=== PATIENT | female | born 2000 | race Caucasian/White ===

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

== ENCOUNTER 2019-04-28 12:28 | Emergency (ER) | payer MEDICAID ==
[2019-04-28 12:45] VITALS: O2SAT 98
--- NOTE | 2019-04-28 13:21 | ERPHSYRPT ---
- History of Present Illness Time Seen by Provider: 04/28/19 13:00 Source: patient Exam Limitations: no limitations Patient Subjective Stated Complaint: pt here for white stools x4 , she has a hx of constipation in the past but had a bm today, no abd pain, no nausea or vomiting, no fever Triage Nursing Assessment: pt alert, walked in , resp easy, skin w/d/p, abd soft , no edema . moves all ext well Physician History: Pt states, she has long been suffering of alternating constipation and diarrhea. She noticed , her bowel movements became "white" since yesterday and it made her concerned. She states,. her last bowel movement was 1.5 hours ago, and it was hard and "white". She denies any pain, no abdominal, flank or rectal pain, no bloody or black stools, no nausea, vomiting, no fever, chills or urinary complaints, also denies vaginal bleeding or discharge. Timing/Duration: yesterday Severity: mild Modifying Factors: Improves With: nothing Associated Symptoms: denies symptoms Allergies/Adverse Reactions: No Known Drug Allergies Allergy (Verified 04/28/19 12:45) Home Medications: No Home Meds [No Home Meds] 1 ea UD 11/08/16 [History] Hx Tetanus, Diphtheria Vaccination/Date Given: Yes Hx Influenza Vaccination/Date Given: No Hx Pneumococcal Vaccination/Date Given: No Immunizations Up to Date: Yes - Review of Systems Constitutional: No Symptoms Ears, Nose, & Throat: No Symptoms Respiratory: No Symptoms Cardiac: No Symptoms Abdominal/Gastrointestinal: Other (white stools, constipation) Genitourinary Symptoms: No Symptoms Musculoskeletal: No Symptoms Skin: No Symptoms Neurological: No Symptoms All Other Systems: Reviewed and Negative - Past Medical History Pertinent Past Medical History: No Neurological History: No Pertinent History ENT History: No Pertinent History Cardiac History: Other Respiratory History: No Pertinent History Endocrine Medical History: No Pertinent History Musculoskeletal History: No Pertinent History GI Medical History: No Pertinent History History: No Pertinent History Psycho-Social History: Anxiety Female Reproductive Disorders: Abnormal Uterine Bleeding Other Medical History: states on a heart monitor recently for tachycardia,to follow up with cardiol. - Past Surgical History Past Surgical History: Yes Neuro Surgical History: No Pertinent History Cardiac: No Pertinent History Respiratory: No Pertinent History Gastrointestinal: No Pertinent History Genitourinary: No Pertinent History Musculoskeletal: No Pertinent History Female Surgical History: Section Other Surgical History: Sep 28 2015 - Social History Smoking Status: Current every day smoker How long have you smoked: 2 Exposure to second hand smoke: Yes Alcohol Use: None Drug Use: none Patient Lives Alone: No Significant Family History: no pertinent family hx - Female History Hx Last Menstrual Period: march Hx Now: No (no protection) - Nursing Vital Signs Nursing Vital Signs: Initial Vital Signs Temperature 98.0 F 04/28/19 12:39 Pulse Rate 113 H 04/28/19 12:39 Respiratory Rate 16 04/28/19 12:39 Blood Pressure 123/69 04/28/19 12:39 O2 Sat by Pulse Oximetry 98 04/28/19 12:39 Pain Scale Pain Intensity 0 - Physical Exam General Appearance: no apparent distress Eye Exam: eyes nml inspection Ears, Nose, Throat Exam: normal ENT inspection, moist mucous membranes Neck Exam: normal inspection, non-tender Respiratory Exam: normal breath sounds, lungs clear Cardiovascular Exam: regular rate/rhythm, normal heart sounds, normal peripheral pulses Gastrointestinal/Abdomen Exam: soft, normal bowel sounds, No tenderness, No distention, No mass, No guarding, No ecchymosis, No rebound, No hepatomegaly, No organomegaly Back Exam: normal inspection, No CVA tenderness Extremity Exam: normal inspection, No pedal edema Neurologic Exam: alert, oriented x 3, cooperative, normal mood/affect Skin Exam: normal color, warm, dry, No rash, No petechiae, No cyanosis, No diaphoresis Lymphatic Exam: No adenopathy SpO2 Interpretation: normal SpO2: 98 O2 Delivery: Room Air - Course Nursing assessment & vital signs reviewed: Yes Ordered Tests: Active Orders 24 hr Category Date Time Status AMYLASE Stat Lab 04/28/19 13:20 Completed CBC W DIFF Stat Lab 04/28/19 13:20 Completed CMP Stat Lab 04/28/19 13:20 Completed CULTURE,URINE Stat Lab 04/28/19 13:20 Received HCG,QUALITATIVE URINE Stat Lab 04/28/19 13:20 Completed LIPASE Stat Lab 04/28/19 13:20 Completed PROTIME WITH INR Stat Lab 04/28/19 13:20 Completed UA W/RFX UR CULTURE Stat Lab 04/28/19 13:20 Completed Urine Triage Profile Stat Lab 04/28/19 13:20 Completed Lab/Rad Data: Laboratory Result Diagrams 04/28/19 13:20 04/28/19 13:20 Laboratory Results 04/28/19 04/28/19 04/28/19 Range/Units 13:20 13:20 13:20 WBC (4.0-10.5) K/mm3 RBC (4.1-5.4) M/mm3 Hgb (12.0-16.0) gm/dl Hct (35-47) % MCV (78-100) fl MCH (26-32) pg MCHC (32-36) g/dl RDW (11.5-14.0) % Plt Count (150-450) K/mm3 MPV (6-9.5) fl Gran % (36.0-66.0) % Eos # (Auto) (0-0.5) Absolute Lymphs (auto) (1.0-4.6) Absolute Monos (auto) (0.0-1.3) Lymphocytes % (24.0-44.0) % Monocytes % (0.0-12.0) % Eosinophils % (0.00-5.0) % Basophils % (0.0-0.4) % Absolute Granulocytes (1.4-6.9) Basophils # (0-0.4) PT (9.95-12.35) SECONDS INR (0.8-3.0) Sodium (137-145) mmol/L Potassium (3.5-5.1) mmol/L Chloride (98-107) mmol/L Carbon Dioxide (22-30) mmol/L Anion Gap (5-15) MEQ/L BUN (7-17) mg/dL Creatinine (0.52-1.04) mg/dL Estimated GFR ML/MIN Glucose (74-106) mg/dL Calcium (8.4-10.2) mg/dL Total Bilirubin (0.2-1.3) mg/dL AST (14-36) U/L ALT (0-35) U/L Alkaline Phosphatase (38-126) U/L Serum Total Protein (6.3-8.2) g/dL Albumin (3.5-5.0) g/dL Amylase (30-110) U/L Lipase (23-300) U/L Urine Color YELLOW (YELLOW) Urine Appearance CLOUDY (CLEAR) Urine pH 7.0 (5-6) Ur Specific Upson 1.023 (1.005-1.025) Urine Protein NEGATIVE (Negative) Urine Ketones NEGATIVE (NEGATIVE) Urine Blood NEGATIVE (0-5) Ramana/ul Urine Nitrite NEGATIVE (NEGATIVE) Urine Bilirubin NEGATIVE (NEGATIVE) Urine Urobilinogen NEGATIVE (0-1) mg/dL Ur Leukocyte Esterase LARGE (NEGATIVE) Urine WBC (Auto) 6-10 (0-5) /HPF Urine RBC (Auto) 3-5 (0-2) /HPF U Epithel Cells (Auto) FEW (FEW) /HPF Urine Bacteria (Auto) MODERATE (NEGATIVE) /HPF Urine Mucus (Auto) SLIGHT (NEGATIVE) /HPF Urine Culture Reflexed YES (NO) Urine Glucose NEGATIVE (NEGATIVE) mg/dL Urine HCG, Qual NEGATIVE (Negative) Urine Opiates Level NEGATIVE (NEGATIVE) Ur Methadone NEGATIVE (NEGATIVE) Urine Barbiturates NEGATIVE (NEGATIVE) Ur Phencyclidine (PCP) NEGATIVE (NEGATIVE) Urine Amphetamine NEGATIVE (NEGATIVE) U Benzodiazepine Level NEGATIVE (NEGATIVE) Urine Cocaine NEGATIVE (NEGATIVE) Urine Marijuana (THC) NEGATIVE (NEGATIVE) 04/28/19 04/28/19 04/28/19 Range/Units 13:20 13:20 13:20 WBC 12.3 H (4.0-10.5) K/mm3 RBC 4.58 (4.1-5.4) M/mm3 Hgb 14.0 (12.0-16.0) gm/dl Hct 41.9 (35-47) % MCV 91.5 (78-100) fl MCH 30.6 (26-32) pg MCHC 33.4 (32-36) g/dl RDW 13.7 (11.5-14.0) % Plt Count 311 (150-450) K/mm3 MPV 10.0 H (6-9.5) fl Gran % 66.7 H (36.0-66.0) % Eos # (Auto) 0.25 (0-0.5) Absolute Lymphs (auto) 3.03 (1.0-4.6) Absolute Monos (auto) 0.79 (0.0-1.3) Lymphocytes % 24.7 (24.0-44.0) % Monocytes % 6.4 (0.0-12.0) % Eosinophils % 2.0 (0.00-5.0) % Basophils % 0.2 (0.0-0.4) % Absolute Granulocytes 8.18 H (1.4-6.9) Basophils # 0.02 (0-0.4) PT 12.4 H (9.95-12.35) SECONDS INR 1.10 (0.8-3.0) Sodium 141 (137-145) mmol/L Potassium 3.5 (3.5-5.1) mmol/L Chloride 108 H (98-107) mmol/L Carbon Dioxide 25 (22-30) mmol/L Anion Gap 11.4 (5-15) MEQ/L BUN 12 (7-17) mg/dL Creatinine 0.59 (0.52-1.04) mg/dL Estimated GFR > 60.0 ML/MIN Glucose 115 H (74-106) mg/dL Calcium 9.5 (8.4-10.2) mg/dL Total Bilirubin 0.40 (0.2-1.3) mg/dL AST 29 (14-36) U/L ALT 25 (0-35) U/L Alkaline Phosphatase 69 (38-126) U/L Serum Total Protein 7.9 (6.3-8.2) g/dL Albumin 4.4 (3.5-5.0) g/dL Amylase 68 (30-110) U/L Lipase 134 (23-300) U/L Urine Color (YELLOW) Urine Appearance (CLEAR) Urine pH (5-6) Ur Specific Upson (1.005-1.025) Urine Protein (Negative) Urine Ketones (NEGATIVE) Urine Blood (0-5) Ramana/ul Urine Nitrite (NEGATIVE) Urine Bilirubin (NEGATIVE) Urine Urobilinogen (0-1) mg/dL Ur Leukocyte Esterase (NEGATIVE) Urine WBC (Auto) (0-5) /HPF Urine RBC (Auto) (0-2) /HPF U Epithel Cells (Auto) (FEW) /HPF Urine Bacteria (Auto) (NEGATIVE) /HPF Urine Mucus (Auto) (NEGATIVE) /HPF Urine Culture Reflexed (NO) Urine Glucose (NEGATIVE) mg/dL Urine HCG, Qual (Negative) Urine Opiates Level (NEGATIVE) Ur Methadone (NEGATIVE) Urine Barbiturates (NEGATIVE) Ur Phencyclidine (PCP) (NEGATIVE) Urine Amphetamine (NEGATIVE) U Benzodiazepine Level (NEGATIVE) Urine Cocaine (NEGATIVE) Urine Marijuana (THC) (NEGATIVE) - Progress Progress: unchanged Progress Note: 04/28/19 14:00 We reviewed her labs, and discussed with her, she was reassured about the stool color changes, and will be started on Bactrim DS BID x 7 days for UTI, advised to rest x 2-3 days, drink plenty of fluids, and follow up with her physician in 1 week. Counseled pt/family regarding: lab results, diagnosis, need for follow-up - Departure Departure Disposition: Home Clinical Impression: Urinary tract infection Qualifiers: Urinary tract infection type: site unspecified Hematuria presence: without hematuria Qualified Code(s): N39.0 - Urinary tract infection, site not specified Constipation Qualifiers: Constipation type: unspecified constipation type Qualified Code(s): K59.00 - Constipation, unspecified Condition: Stable Critical Care Time: No Referrals: DONNIE GARCIA [Primary Care Provider] - Instructions: Constipation, Adult (DC), Urinary Tract Infection, Adult (DC) Additional Instructions: Rest x 2-3 days, drink plenty of fluids, and follow up with your physician next week, return if severe pain, vomiting, bleeding, fever> 102 F! Prescriptions: Polyethylene Glycol 3350 17 gm [Miralax Powder 17GM PACKET] 17 gm PO DAILY 10 Days #10 packet Sulfamethoxazole/Trimethoprim [Bactrim Ds Tablet] 1 each PO BID 7 Days #14 tablet
[2019-04-28 13:25] LABS: BASOPHIL % 0.2 % (0.0-0.4); Basophil (Absolute #) 0.02 (0-0.4); Eosinophil (Absolute #) 0.25 (0-0.5); Granulocyte Absolute (ANC) 8.18 (1.4-6.9); Granulocytes % 66.7 % (36.0-66.0); Hematocrit 41.9 % (35-47); Lymphocyte (Absolute #) 3.03 (1.0-4.6); Lymphocytes % 24.7 % (24.0-44.0); Mean Cell Volume 91.5 fl (78-100); Mean Corpuscular Hemoglobin 30.6 pg (26-32); Mean Corpuscular Hgb Concent. 33.4 g/dl (32-36); Monocyte (Absolute #) 0.79 (0.0-1.3); Monocytes % 6.4 % (0.0-12.0); Platelet Count 311 K/mm3 (150-450); Red Blood Count 4.58 M/mm3 (4.1-5.4); Red Cell Distribution Width 13.7 % (11.5-14.0); White Blood Count 12.3 K/mm3 (4.0-10.5)
[2019-04-28 13:31] LABS: Appearance CLOUDY (CLEAR); Bacteria MODERATE /HPF (NEGATIVE); Bilirubin NEGATIVE (NEGATIVE); Blood NEGATIVE Ery/ul (0-5); Epithelial Cells FEW /HPF (FEW); Glucose NEGATIVE (NEGATIVE); Ketones NEGATIVE (NEGATIVE); Leukocyte Esterase LARGE (NEGATIVE); Mucus SLIGHT /HPF (NEGATIVE); Nitrite NEGATIVE (NEGATIVE); Protein,Urine Dip NEGATIVE (Negative); Specific Gravity 1.023 (1.005-1.025); Urobilinogen NEGATIVE mg/dL (0-1)
[2019-04-28 13:38] LABS: INR 1.1 (0.8-3.0); PROTIME 12.4 SECONDS (9.95-12.35)
[2019-04-28 13:42] LABS: ALBUMIN 4.4 g/dL (3.5-5.0); ALKALINE PHOSPHATASE 69 U/L (38-126); AMYLASE 68 U/L (30-110); ANION GAP 11.4 MEQ/L (5-15); BLOOD UREA NITROGEN 12 mg/dL (7-17); CHLORIDE 108 mmol/L (98-107); Calcium 9.5 mg/dL (8.4-10.2); Carbon Dioxide 25 mmol/L (22-30); Creatinine 1 0.59 mg/dL (0.52-1.04); Glucose 115 mg/dL (74-106); LIPASE 134 U/L (23-300); Potassium 3.5 mmol/L (3.5-5.1); SGOT/AST 29 U/L (14-36); SGPT/ALT 25 U/L (0-35); SODIUM 141 mmol/L (137-145); Total Protein 7.9 g/dL (6.3-8.2)
[2019-04-28 13:45] LABS: Amphetamine,Urine NEGATIVE (NEGATIVE); Barbiturate,Urine NEGATIVE (NEGATIVE); Benzodiazepine,Urine NEGATIVE (NEGATIVE); Cocaine,Urine NEGATIVE (NEGATIVE); Methadone,Urine NEGATIVE (NEGATIVE); Opiate,Urine NEGATIVE (NEGATIVE); PCP,Urine NEGATIVE (NEGATIVE); THC,Urine NEGATIVE (NEGATIVE)
[2019-04-28 14:06] VITALS: BP 110/70; PULSE 80
== END 2019-04-28 14:16 | disposition home or self-care (01) ==
LOC: ED 12:28
DX: N39.0 Urinary tract infection, site not specified (principal); K59.00 Constipation, unspecified
CPT/HCPCS: 36415; 80053; 80307; 81001; 82150; 83690; 84703; 85025; 85610; 87086; 99283

== ENCOUNTER 2019-10-22 01:28 | Emergency (ER) | payer SELFPAY ==
[2019-10-22 01:35] VITALS: BP 133/96; PULSE 97; O2SAT 98
[2019-10-22] MEDS ORDERED: AMOXIL 500 MG PO ONE (01:52)
[2019-10-22] MEDS ORDERED: PERCOCET TABLET 5/325MG PO STA (01:52)
--- NOTE | 2019-10-22 01:52 | ERPHSYRPT ---
- History of Present Illness Time Seen by Provider: 10/22/19 01:45 Source: patient, family Exam Limitations: no limitations Patient Subjective Stated Complaint: pt c/o lt lower tooth and gum pain Triage Nursing Assessment: pt c/o tooth and gum pain to lt lower jaw x3 days this time. Pt states, "it's been going on, off and on, x1 month". Pt c/o lt ear burning. Physician History: 19 y/o white female presents with 3 month h/o dental pain. acute exacerbation pain last couple of days left lower molar from fx tooth Timing/Duration: gradual onset Severity: moderate ENT Location: dental Prearrival Treatment: over the counter meds Associated Symptoms: tooth pain Allergies/Adverse Reactions: No Known Drug Allergies Allergy (Verified 04/28/19 12:45) Hx Tetanus, Diphtheria Vaccination/Date Given: Yes Hx Influenza Vaccination/Date Given: No Hx Pneumococcal Vaccination/Date Given: No Immunizations Up to Date: Yes - Review of Systems Constitutional: No Symptoms Eyes: No Symptoms Ears, Nose, & Throat: Other (dental pain) Respiratory: No Symptoms Cardiac: No Symptoms Abdominal/Gastrointestinal: No Symptoms Genitourinary Symptoms: No Symptoms Musculoskeletal: No Symptoms Skin: No Symptoms Neurological: No Symptoms Psychological: No Symptoms Endocrine: No Symptoms Hematologic/Lymphatic: No Symptoms Immunological/Allergic: No Symptoms All Other Systems: Reviewed and Negative - Past Medical History Pertinent Past Medical History: No Neurological History: No Pertinent History ENT History: No Pertinent History Cardiac History: Other Respiratory History: No Pertinent History Endocrine Medical History: No Pertinent History Musculoskeletal History: No Pertinent History GI Medical History: No Pertinent History History: No Pertinent History Psycho-Social History: Anxiety, Depression Female Reproductive Disorders: Abnormal Uterine Bleeding Other Medical History: manic. 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 - Past Surgical History Past Surgical History: Yes Neuro Surgical History: No Pertinent History Cardiac: No Pertinent History Respiratory: No Pertinent History Gastrointestinal: No Pertinent History Genitourinary: No Pertinent History Musculoskeletal: No Pertinent History Female Surgical History: Section Other Surgical History: Sep 28 2015 - Social History Smoking Status: Current every day smoker How long have you smoked: 6 yrs Exposure to second hand smoke: Yes Alcohol Use: None Drug Use: none Patient Lives Alone: No Significant Family History: no pertinent family hx - Female History Hx Last Menstrual Period: 09/23/19 Hx Now: No - Nursing Vital Signs Nursing Vital Signs: Initial Vital Signs Temperature 97.8 F 10/22/19 01:34 Pulse Rate 97 H 10/22/19 01:34 Respiratory Rate 18 10/22/19 01:34 Blood Pressure 133/96 10/22/19 01:34 O2 Sat by Pulse Oximetry 98 10/22/19 01:34 Pain Scale Pain Intensity 9 - Physical Exam General Appearance: no apparent distress, alert, anxiety Eye Exam: bilateral eye: normal inspection, PERRL, EOMI Ear Exam: bilateral ear: auricle normal, canal normal, TM normal Nasal Exam: normal inspection Throat Exam: dental tenderness Neck Exam: normal inspection, non-tender, supple, full range of motion Cardiovascular/Respiratory Exam: chest non-tender, no respiratory distress Abdominal Exam: non-tender Neurologic Exam: alert, oriented x 3, cooperative, 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, normal mood/affect, nml cerebellar function, nml station & gait Skin Exam: normal color, warm, dry SpO2 Interpretation: normal SpO2: 98 O2 Delivery: Room Air - Course Nursing assessment & vital signs reviewed: Yes Ordered Tests: Medication Summary Generic Name Dose Route Start Last Admin Trade Name Freq PRN Reason Stop Dose Admin Amoxicillin 500 mg 10/22/19 01:52 Amoxil 500 Mg PO 10/22/19 01:53 STAT ONE Oxycodone/Acetaminophen 1 tab 10/22/19 01:52 Percocet Tablet 5/325mg PO 10/22/19 01:53 STAT STA - Progress Progress: unchanged Counseled pt/family regarding: diagnosis, need for follow-up - Departure Departure Disposition: Home Clinical Impression: Pain, dental Condition: Stable Critical Care Time: No Referrals: DONNIE GARCIA [Primary Care Provider] - Additional Instructions: use tylenol and ibuprofen for pain. follow up with dentist for definitive care Prescriptions: Amoxicillin 500 mg Cap [Amoxil 500 mg] 500 mg PO TID #30 capsule
[2019-10-22] MEDS ORDERED: PERCOCET TABLET 5/325MG ONE (01:57)
[2019-10-22] MEDS ORDERED: Augmentin 500-125 Tablet ONE (01:57)
[2019-10-22] MEDS ORDERED: AMOXIL 500 MG ONE (02:00)
== END 2019-10-22 02:05 | disposition home or self-care (01) ==
LOC: ED 01:28
DX: K08.89 Other specified disorders of teeth and supporting structures (principal)
CPT/HCPCS: 99283; A9270-GY

== ENCOUNTER 2020-01-09 00:29 | Emergency (ER) | payer SELFPAY ==
[2020-01-09 00:46] VITALS: O2SAT 99
[2020-01-09] MEDS ORDERED: Ativan 2 MG/1 ML VIAL IV ONE (00:53)
[2020-01-09] MEDS ORDERED: Ativan 2 MG/1 ML VIAL ONE (00:57)
--- NOTE | 2020-01-09 01:50 | ERPHSYRPT ---
- History of Present Illness Time Seen by Provider: 01/09/20 00:40 Source: patient Exam Limitations: no limitations Patient Subjective Stated Complaint: pt states she has had increased stress recently d/t problems with her boyfriend. states she has a history of anxiety and panic attacks. c/o numbness in her arms bilat. ems states she passed out in the ambulance. Triage Nursing Assessment: pt in per ambulance, transfers to stretcher with assist of 4. skin pink warm and dry. respirations nonlabored with lungs cta. occasional tachypnea noted. respirations decrease with redirection. Physician History: Is a 19-year-old female who presents with a self diagnosed panic attack. She was noted to be hyperventilating by EMS she says she has been very anxious because her boyfriend broke up with her Timing/Duration: day(s) (4), intermittent Severity of Symptoms-Max: moderate Severity of Symptoms-Current: moderate Context related to: significant other (Left her) Associated Symptoms: agitated, depressed Previous symptoms: same symptoms as today Allergies/Adverse Reactions: No Known Drug Allergies Allergy (Verified 01/09/20 00:46) Hx Tetanus, Diphtheria Vaccination/Date Given: Yes Hx Influenza Vaccination/Date Given: No Hx Pneumococcal Vaccination/Date Given: No Immunizations Up to Date: Yes Travel Risk - International Travel Have you traveled outside of the country in past 3 weeks: No Have you or anyone close to you been diagnosed with or: No Do your reside in a community with a known COVID-19 case?: Yes If Yes where:: [facility] - Coronavirus Screening Has patient experienced Coronavirus symptoms: No - Past Medical History Pertinent Past Medical History: No Neurological History: No Pertinent History ENT History: No Pertinent History Cardiac History: Other Respiratory History: No Pertinent History Endocrine Medical History: No Pertinent History Musculoskeletal History: No Pertinent History GI Medical History: No Pertinent History History: No Pertinent History Psycho-Social History: Anxiety, Depression Female Reproductive Disorders: Abnormal Uterine Bleeding Other Medical History: manic. tachycardia. previous suicide attempt - Past Surgical History Past Surgical History: Yes Neuro Surgical History: No Pertinent History Cardiac: No Pertinent History Respiratory: No Pertinent History Gastrointestinal: No Pertinent History Genitourinary: No Pertinent History Musculoskeletal: No Pertinent History Female Surgical History: Section Other Surgical History: x2 - Social History Smoking Status: Current every day smoker How long have you smoked: 5 yrs Exposure to second hand smoke: Yes Alcohol Use: None Drug Use: none Patient Lives Alone: No Significant Family History: no pertinent family hx - Female History Hx Last Menstrual Period: 12/18/2019 Hx Now: No - Review of Systems Constitutional: No Fever, No Chills Eyes: No Symptoms Ears, Nose, & Throat: No Symptoms Respiratory: No Cough, No Dyspnea Cardiac: No Chest Pain, No Edema, No Syncope Abdominal/Gastrointestinal: No Abdominal Pain, No Nausea, No Vomiting, No Diarrhea Genitourinary Symptoms: No Dysuria Musculoskeletal: No Back Pain, No Neck Pain Skin: No Rash Neurological: No Dizziness, No Focal Weakness, No Sensory Changes Psychological: Anxiety, Depression Endocrine: No Symptoms All Other Systems: Reviewed and Negative - Nursing Vital Signs Nursing Vital Signs: Initial Vital Signs Temperature 98.8 F 01/09/20 00:33 Pulse Rate 114 H 01/09/20 00:33 Respiratory Rate 20 01/09/20 00:33 Blood Pressure 127/76 01/09/20 00:33 O2 Sat by Pulse Oximetry 99 01/09/20 00:33 Pain Scale Pain Intensity 0 - Physical Exam General Appearance: no apparent distress Eyes, Ears, Nose, Throat Exam: normal ENT inspection, moist mucous membranes Neck Exam: normal inspection, non-tender, supple Respiratory Exam: normal breath sounds, lungs clear, No respiratory distress Cardiovascular Exam: regular rate/rhythm, No edema Gastrointestinal/Abdominal Exam: soft, No tenderness, No distention Extremities Exam: normal inspection, normal range of motion, No evidence of injury, No edema Current Suicidality: denies suicide plan Neurological Exam: 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, 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 tested, oriented x 3, anxious Skin Exam: normal color, warm, dry, No rash SpO2: 99 - Course Nursing assessment & vital signs reviewed: Yes Ordered Tests: Medication Summary Discontinued Medications Generic Name Dose Route Start Last Admin Trade Name Freq PRN Reason Stop Dose Admin Lorazepam 1 mg 01/09/20 00:53 01/09/20 00:59 Ativan 2 Mg/1 Ml Vial IV 01/09/20 00:54 1 mg STAT ONE Administration Lorazepam Confirm 01/09/20 00:57 Ativan 2 Mg/1 Ml Vial Administered 01/09/20 00:58 Dose 2 mg .ROUTE .STK-MED ONE - Progress Progress: improved - Departure Departure Disposition: Home Clinical Impression: Anxiety Condition: Stable Critical Care Time: No Referrals: DONNIE GARCIA [Primary Care Provider] - Instructions: Anxiety, Adult (DC) Prescriptions: PARoxetine HCl [Paxil] 10 mg PO DAILY 30 Days #30 tablet
[2020-01-09 02:23] VITALS: BP 125/80; PULSE 102
== END 2020-01-09 02:28 | disposition home or self-care (01) ==
LOC: ED 00:29
DX: F41.9 Anxiety disorder, unspecified (principal)
CPT/HCPCS: 36000; 96374; 99284; J2060

== ENCOUNTER 2024-02-26 14:58 | Emergency (ER) | payer OTHER ==
[2024-02-26 15:43] VITALS: TEMP 100.7
[2024-02-26 16:03] LABS: HCG URINE TEST NEGATIVE (NEGATIVE)
[2024-02-26] MEDS ORDERED: Sodium Chloride 0.9% 1000 ML 1,000 ML ONE (16:04)
[2024-02-26] MEDS ORDERED: TYLENOL 325 MG ONE (16:04)
[2024-02-26] MEDS: TYLENOL 325 MG PO STA (16:07)
[2024-02-26] MEDS: Sodium Chloride 0.9% 1000 ML 1,000 ML IV STA (16:08)
[2024-02-26 16:13] LABS: Appearance Turbid (Clear); Bacteria Moderate /HPF (None Seen); Bilirubin Negative (Negative); Blood Moderate (Negative); Epithelial Cells Moderate /HPF (None Seen); Glucose, Urine Negative (Negative); Ketones Negative (Negative); Leukocyte Esterase Large (Negative); Nitrite Positive (Negative); Protein,Urine Dip 100 (Negative); Specific Gravity 1.015 (1.005-1.030); WBC >100 /HPF (0-5)
[2024-02-26 16:14] LABS: ADD URINE CULTURE? YES (NO); Hyaline Casts None Seen /LPF (0-2)
[2024-02-26 16:38] LABS: Absolute Neutrophil Ct (ANC) 13.72 x10^3/uL (1.4-6.9); BASOPHIL % 0.3 % (0.0-0.4); Basophil (Absolute #) 0.04 x10^3/uL (0-0.4); Eosinophil % 0.7 % (0.00-5.0); Eosinophil (Absolute #) 0.11 x10^3/uL (0-0.5); Hematocrit 41.6 % (35-47); Hemoglobin 13.9 g/dL (12.0-16.0); IMMATURE GRAN # 0.11 x10^3u/L (0.00-0.03); IMMATURE GRAN % 0.7 % (0.00-0.4); Lymphocyte (Absolute #) 1.09 x10^3/uL (1.0-4.6); Lymphocytes % 6.9 % (24.0-44.0); Mean Cell Volume 90.8 fL (78-100); Mean Corpuscular Hemoglobin 30.3 pg (26-32); Mean Corpuscular Hgb Concent. 33.4 g/dL (32-36); Mean Platelet Volume 9.9 fL (7.5-11.0); Monocyte (Absolute #) 0.78 x10^3/uL (0.0-1.3); Monocytes % 4.9 % (0.0-12.0); Neutrophil % 86.5 % (36.0-66.0); Platelet Count 318 x10^3/uL (150-450); Red Blood Count 4.58 x10^6/uL (4.1-5.4); Red Cell Distribution Width 13.3 % (11.5-14.0); White Blood Count 15.9 x10^3/uL (4.0-10.5)
[2024-02-26 16:51] LABS: ALBUMIN 4.3 g/dL (3.5-5.0); ANION GAP 11.2 MEQ/L (5-15); BILIRUBIN,TOTAL 0.7 mg/dL (0.2-1.3); Calcium 9.2 mg/dL (8.4-10.2); Creatinine 1 0.82 mg/dL (0.52-1.04); EST GLOMERULAR FILTRATION RATE 102.4 ML/MIN; Potassium 4.1 mmol/L (3.5-5.1); Total Protein 8.3 g/dL (6.3-8.2)
--- NOTE | 2024-02-26 17:16 | XRAY ---
Indication: Fever. Multiple contiguous axial images obtained through the abdomen and pelvis without contrast using renal stone protocol. Comparison: April 27, 2018 Lung bases now demonstrates mild scattered subsegmental atelectasis/scarring. No infiltrate or effusion. Heart not enlarged. No renal calculus or evidence for obstructive uropathy in either kidneys. Right kidney demonstrates new mild perinephric stranding likely inflammatory/infectious such as nephritis. Urinary bladder demonstrates new tiny intraluminal air bubble presumed from gas-forming bacterial infection. No free fluid/air. Noncontrasted stomach and bowel loops appear nonobstructed with normal appendix. Remaining liver, gallbladder, pancreas, spleen, adrenal glands, left kidney, both ureters, bladder, uterus, and aorta are unremarkable for noncontrast exam. Osseous structures intact. Impression: 1. Continued negative renal calculus or evidence for obstructive uropathy. 2. New right renal perinephric stranding and urinary bladder intraluminal air bubble. Rule out UTI.
--- NOTE | 2024-02-26 17:16 | XRAY ---
Indication: Fever. Comparison: November 16, 2015. Portable chest demonstrates new right infrahilar hazy airspace disease. Remaining heart, lungs, and bony thorax are normal.
[2024-02-26] MEDS ORDERED: ROCEPHIN 1 GM / 100 ML NaCl 1 GM/100 ML IVPB IV ONE (17:18)
[2024-02-26] MEDS: ROCEPHIN 1 GM / 100 ML NaCl 1 GM/100 ML IVPB IV ONE (17:22)
--- NOTE | 2024-02-26 17:33 | ERPHSYRPT ---
- History of Present Illness Time Seen by Provider: 02/26/24 15:45 Source: patient, family, other ([facility] care nurse) Exam Limitations: no limitations Patient Subjective Stated Complaint: C/o right flank pain for almost 2 weeks Triage Nursing Assessment: Patient is alert and oriented. No SOB. Skin tone normal. Urine specimen obtained. NORMA CUN[place]. Physician History: Patient is a 23-year-old white female who has been sick with flank pain for over 2 weeks she is also been having night sweats she has been seen a couple of times and had lab work but no one has checked a urine on her apparentlyShe had a CBC yesterday which showed a white count [id number] she had a TSH CMP and a CBC. Timing/Duration: week(s) (2) Severity: moderate Associated Symptoms: nausea, fever, headaches Allergies/Adverse Reactions: No Known Drug Allergies Allergy (Verified 02/26/24 15:43) Hx Tetanus, Diphtheria Vaccination/Date Given: Yes Hx Influenza Vaccination/Date Given: No Hx Pneumococcal Vaccination/Date Given: No Immunizations Up to Date: Yes Travel Risk - International Travel Have you traveled outside of the country in past 3 weeks: No - Emerging Infectious Disease Are you exhibiting symptoms associated with any current EIDs: Yes Symptoms: Abdominal Pain - Review of Systems Constitutional: Fever, Malaise, Night Sweats, Weakness, No Chills Eyes: No Symptoms Ears, Nose, & Throat: No Symptoms Respiratory: No Cough, No Dyspnea Cardiac: No Chest Pain, No Edema, No Syncope Abdominal/Gastrointestinal: No Abdominal Pain, No Nausea, No Vomiting Genitourinary Symptoms: No Dysuria Musculoskeletal: No Back Pain, No Neck Pain Skin: No Rash Neurological: No Dizziness, No Focal Weakness, No Sensory Changes Psychological: No Symptoms Endocrine: No Symptoms All Other Systems: Reviewed and Negative - Past Medical History Pertinent Past Medical History: No Neurological History: No Pertinent History ENT History: No Pertinent History Cardiac History: Other Respiratory History: No Pertinent History Endocrine Medical History: No Pertinent History Musculoskeletal History: No Pertinent History GI Medical History: No Pertinent History History: No Pertinent History Psycho-Social History: Anxiety, Depression Female Reproductive Disorders: Abnormal Uterine Bleeding Other Medical History: manic, tachycardia, previous suicide attempt - Past Surgical History Past Surgical History: Yes Neuro Surgical History: No Pertinent History Cardiac: No Pertinent History Respiratory: No Pertinent History Gastrointestinal: No Pertinent History Genitourinary: No Pertinent History Musculoskeletal: No Pertinent History Female Surgical History: Section Other Surgical History: x2 Significant Family History: no pertinent family hx - Female History Hx Last Menstrual Period: 02/18/24 Hx Now: No - Social History Smoking Status: Current every day smoker How long have you smoked: 5 yrs Exposure to second hand smoke: Yes Alcohol Use: None Drug Use: none Patient Lives Alone: No - Nursing Vital Signs Nursing Vital Signs: Initial Vital Signs Temperature 100.7 F 02/26/24 15:33 Pulse Rate 118 H 02/26/24 15:33 Blood Pressure 132/87 02/26/24 15:33 O2 Sat by Pulse Oximetry 97 02/26/24 15:33 Pain Scale Pain Intensity 4 - Physical Exam General Appearance: mild distress, alert Eye Exam: PERRL/EOMI, eyes nml inspection Ears, Nose, Throat Exam: normal ENT inspection, TMs normal, pharynx normal, moist mucous membranes Neck Exam: normal inspection, non-tender, supple, full range of motion Respiratory Exam: normal breath sounds, lungs clear, No respiratory distress Cardiovascular Exam: regular rate/rhythm, normal heart sounds, normal peripheral pulses Gastrointestinal/Abdomen Exam: soft, normal bowel sounds, No tenderness, No mass Back Exam: normal inspection, normal range of motion, No CVA tenderness, No vertebral tenderness Extremity Exam: normal inspection, normal range of motion, pelvis stable Neurologic Exam: alert, oriented x 3, cooperative, normal mood/affect, nml cerebellar function, nml station & gait, sensation nml, No motor deficits Skin Exam: normal color, warm, dry, No rash Lymphatic Exam: No adenopathy SpO2: 97 - Course Nursing assessment & vital signs reviewed: Yes - Radiology Exams Chest X-ray Interpretation: Reviewed by me, Negative - CT Exams Abdomen/Pelvis CT Interpretation: Other (Perinephric stranding suggesting pyelonephritis on the right) Ordered Tests: Active Orders 24 hr Category Date Time Status IV Insertion STAT Care 02/26/24 15:36 Active ABDOMEN AND PELVIS W/0 CONTRAS [CT] Stat Exams 02/26/24 15:37 Taken CHEST 1 VIEW (PORTABLE) Stat Exams 02/26/24 15:37 Taken BLOOD CULTURE Stat Lab 02/26/24 16:34 Received CBC W DIFF Stat Lab 02/26/24 16:30 Completed CMP Stat Lab 02/26/24 16:00 Completed CULTURE,URINE Stat Lab 02/26/24 15:43 Received HCG QUALITATIVE, URINE Stat Lab 02/26/24 16:00 Completed Lactic Acid Stat Lab 02/26/24 15:36 Completed UA W/RFX UR CULTURE Stat Lab 02/26/24 15:43 Completed Medication Summary Generic Name Dose Route Start Last Admin Trade Name Elliot PRN Reason Stop Dose Admin Ceftriaxone Sodium 1 gm in 100 mls @ 200 mls/hr 02/26/24 17:15 02/26/24 17:22 Rocephin 1 Gm / 100 Ml Nacl IV 02/26/24 17:44 200 ml/hr STAT ONE 200 mls/hr Administration Levofloxacin/Dextrose 750 mg in 150 mls @ 100 mls/hr 02/26/24 17:25 Levofloxacin 750mg/150ml D5w IV 02/26/24 18:54 STAT STA Discontinued Medications Generic Name Dose Route Start Last Admin Trade Name Elliot PRN Reason Stop Dose Admin Acetaminophen 650 mg 02/26/24 15:36 02/26/24 16:07 Acetaminophen 325 Mg Tablet PO 02/26/24 15:37 650 mg STAT STA Administration Acetaminophen Confirm 02/26/24 16:04 Acetaminophen 325 Mg Tablet Administered 02/26/24 16:05 Dose 650 mg .ROUTE .STK-MED ONE Sodium Chloride 1,000 mls @ 999 mls/hr 02/26/24 15:36 02/26/24 17:20 Sodium Chloride 0.9% 1000 Ml IV 02/26/24 16:36 Infused .Q1H1M STA Infusion Sodium Chloride Confirm 02/26/24 16:04 Sodium Chloride 0.9% 1000 Ml Administered 02/26/24 16:05 Dose 1,000 mls @ ud .ROUTE .STK-MED ONE Ceftriaxone Sodium Confirm 02/26/24 17:18 Rocephin 1 Gm / 100 Ml Nacl Administered 02/26/24 17:19 Dose 1 gm in 100 mls @ ud IV .STK-MED ONE Lab/Rad Data: Laboratory Result Diagrams 02/26/24 16:30 02/26/24 16:00 Laboratory Results 02/26/24 02/26/24 02/26/24 Range/Units 16:30 16:00 16:00 WBC 15.9 H (4.0-10.5) x10^3/uL RBC 4.58 (4.1-5.4) x10^6/uL Hgb 13.9 (12.0-16.0) g/dL Hct 41.6 (35-47) % MCV 90.8 (78-100) fL MCH 30.3 (26-32) pg MCHC 33.4 (32-36) g/dL RDW 13.3 (11.5-14.0) % Plt Count 318 (150-450) x10^3/uL MPV 9.9 (7.5-11.0) fL Gran % 86.5 H (36.0-66.0) % Immature Gran % (Auto) 0.7 H (0.00-0.4) % Nucleat RBC Rel Count 0.0 (0.00-0.1) % Eos # (Auto) 0.11 (0-0.5) x10^3/uL Immature Gran # (Auto) 0.11 H (0.00-0.03) x10^3u/L Absolute Lymphs (auto) 1.09 (1.0-4.6) x10^3/uL Absolute Monos (auto) 0.78 (0.0-1.3) x10^3/uL Absolute Nucleated RBC 0.00 (0.00-0.01) x10^3u/L Lymphocytes % 6.9 L (24.0-44.0) % Monocytes % 4.9 (0.0-12.0) % Eosinophils % 0.7 (0.00-5.0) % Basophils % 0.3 (0.0-0.4) % Absolute Granulocytes 13.72 H (1.4-6.9) x10^3/uL Basophils # 0.04 (0-0.4) x10^3/uL Sodium 138 (135-145) mmol/L Potassium 4.1 (3.5-5.1) mmol/L Chloride 104 (98-107) mmol/L Carbon Dioxide 27 (22-30) mmol/L Anion Gap 11.2 (5-15) MEQ/L BUN 9 (7-17) mg/dL Creatinine 0.82 (0.52-1.04) mg/dL Estimated GFR 102.4 ML/MIN Glucose 100 (74-106) mg/dL Lactic Acid (0.4-2.0) Calcium 9.2 (8.4-10.2) mg/dL Total Bilirubin 0.70 (0.2-1.3) mg/dL AST 79 H (14-36) U/L ALT 93 H (0-35) U/L Alkaline Phosphatase 147 H (38-126) U/L Serum Total Protein 8.3 H (6.3-8.2) g/dL Albumin 4.3 (3.5-5.0) g/dL Urine Color (Yellow) Urine Appearance (Clear) Urine pH (4.6-8.0) Ur Specific [place] (1.005-1.030) Urine Protein (Negative) Urine Glucose (UA) (Negative) mg/dL Urine Ketones (Negative) Urine Blood (Negative) Urine Nitrite (Negative) Urine Bilirubin (Negative) Urine Urobilinogen (0.2) mg/dL Ur Leukocyte Esterase (Negative) U Hyaline Cast (Auto) (0-2) /LPF Urine Microscopic RBC (0-5) /HPF Urine Microscopic WBC (0-5) /HPF Ur Epithelial Cells (None Seen) /HPF Urine Bacteria (None Seen) /HPF Urine Culture Reflexed (NO) Urine HCG, Qual NEGATIVE (NEGATIVE) 02/26/24 02/26/24 Range/Units 15:43 15:36 WBC (4.0-10.5) x10^3/uL RBC (4.1-5.4) x10^6/uL Hgb (12.0-16.0) g/dL Hct (35-47) % MCV (78-100) fL MCH (26-32) pg MCHC (32-36) g/dL RDW (11.5-14.0) % Plt Count (150-450) x10^3/uL MPV (7.5-11.0) fL Gran % (36.0-66.0) % Immature Gran % (Auto) (0.00-0.4) % Nucleat RBC Rel Count (0.00-0.1) % Eos # (Auto) (0-0.5) x10^3/uL Immature Gran # (Auto) (0.00-0.03) x10^3u/L Absolute Lymphs (auto) (1.0-4.6) x10^3/uL Absolute Monos (auto) (0.0-1.3) x10^3/uL Absolute Nucleated RBC (0.00-0.01) x10^3u/L Lymphocytes % (24.0-44.0) % Monocytes % (0.0-12.0) % Eosinophils % (0.00-5.0) % Basophils % (0.0-0.4) % Absolute Granulocytes (1.4-6.9) x10^3/uL Basophils # (0-0.4) x10^3/uL Sodium (135-145) mmol/L Potassium (3.5-5.1) mmol/L Chloride (98-107) mmol/L Carbon Dioxide (22-30) mmol/L Anion Gap (5-15) MEQ/L BUN (7-17) mg/dL Creatinine (0.52-1.04) mg/dL Estimated GFR ML/MIN Glucose (74-106) mg/dL Lactic Acid 1.2 (0.4-2.0) Calcium (8.4-10.2) mg/dL Total Bilirubin (0.2-1.3) mg/dL AST (14-36) U/L ALT (0-35) U/L Alkaline Phosphatase (38-126) U/L Serum Total Protein (6.3-8.2) g/dL Albumin (3.5-5.0) g/dL Urine Color Yellow (Yellow) Urine Appearance Turbid A (Clear) Urine pH 6.0 (4.6-8.0) Ur Specific [place] 1.015 (1.005-1.030) Urine Protein 100 A (Negative) Urine Glucose (UA) Negative (Negative) mg/dL Urine Ketones Negative (Negative) Urine Blood Moderate A (Negative) Urine Nitrite Positive A (Negative) Urine Bilirubin Negative (Negative) Urine Urobilinogen 1.0 A (0.2) mg/dL Ur Leukocyte Esterase Large A (Negative) U Hyaline Cast (Auto) None Seen (0-2) /LPF Urine Microscopic RBC 3-5 (0-5) /HPF Urine Microscopic WBC >100 A (0-5) /HPF Ur Epithelial Cells Moderate A (None Seen) /HPF Urine Bacteria Moderate A (None Seen) /HPF Urine Culture Reflexed YES (NO) Urine HCG, Qual (NEGATIVE) - Progress Progress: improved Medical Desision Making - Independent Historian Additional History obtained from: Spouse - Diagnostic Testing Diagnostic test were ordered, analyzed, and reviewed by me: Yes Radiological Interpretation: Reviewed by me - Risk of complications Low Risk: Low risk of morbidity from additional dx testing or treatment - Departure Departure Disposition: Home Clinical Impression: Pyelonephritis Condition: Stable Critical Care Time: No Referrals: IZA MARC, MACHINE HOSTLER [Primary Care Provider] - Follow up/PCP as directed Instructions: Urinary Tract Infection, Adult ED Prescriptions: Cefdinir 300 mg PO BID 10 Days #20 cap Levofloxacin [Levaquin 500 MG Tablet] 500 mg PO DAILY #7 tablet
[2024-02-26] MEDS ORDERED: LEVOFLOXACIN 750MG/150ML D5W 750 MG/150 ML BAG IV ONE (17:38)
[2024-02-26] MEDS: LEVOFLOXACIN 750MG/150ML D5W 750 MG/150 ML BAG IV STA (18:02)
[2024-02-26 19:10] VITALS: BP 127/86; PULSE 120; RESP 18; O2SAT 98
[2024-02-26] MEDS ORDERED: Zofran 4 MG/2 ML VIAL ONE (19:13)
[2024-02-26] MEDS: Zofran 4 MG/2 ML VIAL IV ONE (19:14)
== END 2024-02-26 19:43 | disposition home or self-care (01) ==
LOC: ED 14:58
DX: N12 Tubulo-interstitial nephritis, not specified as acute or chronic (principal); R10.9 Unspecified abdominal pain; Z72.0 Tobacco use
CPT/HCPCS: 36000; 36415; 71045; 74176; 80053; 81001; 81025; 83605; 85025; 87040; 87077; 87086; 87186; 96365; 96367; 96374; 96375; 99284; J0696; J1956; J2405; A9270-GY